=== PATIENT | female | born 1970 | race Asian ===

== ENCOUNTER → 2019-05-08 | Outpatient (CLI) | payer OTHER, BC ==
[~2019-05-08] MED LIST: GADOTERATE 5 MMOL/10ML VIAL. IVP ONE
--- NOTE | 2019-05-09 08:37 | RAD ---
MRI pelvis with and without contrast May 08, 2019 INDICATION: Menorrhagia, uterine artery embolization. COMPARISON: None available TECHNIQUE: Multiplanar, multisequence MR imaging of the pelvis was performed before and after administration of 10 mL gadolinium based contrast. FINDINGS: The uterus measures 11.9 x 9.0 x 7.3 cm. Endometrium measures 11 mm. Myometrium is ill-defined and heterogeneous which may be secondary to posttreatment related changes. There is thickening of the junctional zone predominantly along the posterior uterine body measuring up to 2.8 cm suggestive of adenomyosis. There is a cystic area along the left uterine fundus measuring 3.2 x 2.8 cm which may represent cystic degeneration of uterine fibroid. The left ovary measures 2.8 x 1.4 x 2.8 cm with follicular changes. Right ovary is not well-visualized suspected to measure 1.7 x 0.9 x 1.8 cm. No suspicious adnexal mass is identified. Visualized bowel appear normal in caliber. Urinary bladder is within normal limits given degree of distention. No suspicious osseous abnormality is identified. No pathologically enlarged pelvic lymph nodes are identified. IMPRESSION: 1. Thickening of the junctional zone predominant along the posterior uterine body most favors adenomyosis. 2. Cystic area along the left fundal aspect of the uterus which appears exophytic may represent a degenerating uterine fibroid. 3. No suspicious adnexal masses. Electronically signed by: Kenia Morales MD (05/09/2019 8:34 AM) [facility]
== END | disposition home or self-care (01) ==
LOC: MRI 15:11
PROVIDERS: ATTEND Nurse Practitioner Women's Health
DX: N80.0 Endometriosis of uterus (principal); N92.0 Excessive and frequent menstruation with regular cycle
CPT/HCPCS: 72197; A9575